=== PATIENT | female | born 1990 | race Caucasian/White ===

== ENCOUNTER 2016-07-31 21:33 | Emergency (ER) | payer MEDICAID ==
--- NOTE | 2016-07-31 22:56 | ER Document Report ---
ED GI/ - General Chief Complaint: Vaginal Bleeding Stated Complaint: VAGINAL BLEEDING Time seen by provider: 22:55 Notes: Patient is a 26-year-old female that comes emergency department for chief complaint of vaginal bleeding that started today, she states she passed a clot, she denies abdominal pain, flank pain, nausea vomiting, fever. He is at about 13 weeks gestation by last menstrual period. She has been to the health department, pending [facility] appointment this Sunday. Past medical history of seizure disorder and brain cancer (s/p surgery). TRAVEL OUTSIDE OF THE [place] IN LAST 30 DAYS: No - Related Data Allergies/Adverse Reactions: Adhesive Bandage * [Adhesive Bandage] Allergy (Verified 07/31/16 22:08) levetiracetam [From Keppra] Allergy (Verified 07/31/16 22:08) morphine [Morphine] Allergy (Verified 07/31/16 22:08) ondansetron [From Zofran (as hydrochloride)] Allergy (Verified 07/31/16 22:08) ekg leads Allergy (Uncoded 07/31/16 22:08) Past Medical History - General Information source: Patient - Social History Smoking Status: Never Smoker Frequency of alcohol use: None Drug Abuse: None Lives with: Family Family History: Reviewed & Not Pertinent Patient has suicidal ideation: No Patient has homicidal ideation: No Neurological Medical History: Reports: Hx Seizures Renal/ Medical History: Denies: Hx Peritoneal Dialysis Malignancy Medical History: Reports: Hx Brain Cancer - Glioblastoma multiform GI Medical History: Reports: Hx Gastroesophageal Reflux Disease Past Surgical History: Reports: Hx Cholecystectomy, Hx Neurologic Surgery - Right parietal craniotomy with tumor resection. SLAG DUMPER shunt left ventricle.. Denies: Hx Hysterectomy - Immunizations Immunizations up to date: No Hx Diphtheria, Pertussis, Tetanus Vaccination: No Review of Systems - Review of Systems Constitutional: No symptoms reported EENT: No symptoms reported Cardiovascular: No symptoms reported Respiratory: No symptoms reported Gastrointestinal: No symptoms reported Genitourinary: No symptoms reported Female Genitourinary: See HPI Musculoskeletal: No symptoms reported Skin: No symptoms reported Hematologic/Lymphatic: No symptoms reported Neurological/Psychological: No symptoms reported Physical Exam - Vital signs Vitals: Temp Pulse Resp BP Pulse Ox 98.4 F 97 17 124/66 96 07/31/16 22:10 07/31/16 22:10 07/31/16 22:10 07/31/16 22:10 07/31/16 22:10 Interpretation: Normal - General General appearance: Appears well, Alert In distress: None - Patient smiling, talkative, well-appearing - HEENT Head: Normocephalic, Atraumatic Eyes: Normal Conjunctiva: Normal Extraocular movements intact: Yes Eyelashes: Normal Pupils: PERRL Sinus: Normal Nasal: Normal Mouth/Lips: Normal Mucous membranes: Normal Pharynx: Normal Neck: Normal - Respiratory Respiratory status: No respiratory distress Chest status: Nontender Breath sounds: Normal Chest palpation: Normal - Cardiovascular Rhythm: Regular Heart sounds: Normal auscultation Murmur: No - Abdominal Inspection: Normal Distension: No distension Bowel sounds: Normal Tenderness: Nontender. No: Tender, McBurney's point, Calderón's sign, Guarding Organomegaly: No organomegaly - Back Back: Normal, Nontender. No: Tender - Extremities General upper extremity: Normal inspection, Nontender, Normal ROM, Normal strength General lower extremity: Normal inspection, Nontender, Normal ROM, Normal strength - Neurological Neuro grossly intact: Yes Cognition: Normal Orientation: AAOx4 [place] Coma Scale Eye Opening: Spontaneous [place] Coma Scale Verbal: Oriented [place] Coma Scale Motor: Obeys Commands [place] Coma Scale Total: 15 Speech: Normal Motor strength normal: LUE, RUE, LLE, RLE Sensory: Normal - Psychological Associated symptoms: Normal affect, Normal mood - Skin Skin Temperature: Warm Skin Moisture: Dry Skin Color: Normal Course - Re-evaluation Re-evalutation: CBC unremarkable, hCG is lower than expected at 9000, ultrasound shows abnormal appearing intrauterine . Suggestive of demise with impending miscarriage based on patient's current bleeding. Patient not currently bleeding , has no current symptoms. Patient heart he has close follow-up with [facility] planned, RhoGAM is not indicated. Patient given details and handouts of all her information, patient took this very well, remained very positive, supportive. Patient states she'll follow closely with [facility] and return for any concerning symptoms. - Vital Signs Vital signs: Temp Pulse Resp BP Pulse Ox 98.3 F 81 15 118/71 100 08/01/16 01:45 08/01/16 01:45 08/01/16 01:45 08/01/16 01:45 08/01/16 01:45 - Laboratory Result Diagrams: 07/31/16 23:15 Laboratory results interpreted by me: 07/31/16 07/31/16 07/31/16 22:43 23:15 23:15 Serum HCG, Qual POSITIVE H Beta HCG, Quant 9033.60 H Urine Blood LARGE H Ur Leukocyte Esterase TRACE H Discharge - Discharge Clinical Impression: Vaginal bleeding in patient at less than 20 weeks gestation Condition: Stable Disposition: HOME, SELF-CARE Additional Instructions: Evaluation and workup is concerning for possible miscarriage that is developing. However this still requires my evaluation, please follow-up with [facility] in 2-3 days to have a repeat evaluation of your blood test and further decision-making as we discussed. Return the emergency department immediately for any concerning symptoms including very heavy bleeding, dizziness, severe pain, fever, etc. Miscarriage Impending You have been evaluated for a possible miscarriage. At this time, it appears that the fetus has stopped growing. A miscarriage occurs when the fetus is abnormal. There is no medicine or treatment to prevent it. If bleeding is not severe, and if your pain can be controlled with medicine, you could complete the miscarriage at home. If that's not practical, or if the miscarriage doesn't progress spontaneously, we will arrange for a D&C procedure. You should rest in bed. Do not douche or have sex for at least a week, or until OK'd by the doctor. If you believe you've passed the fetus, collect it in a zip-lock plastic bag. Be sure to follow up with your doctor. Call the doctor or return for re- examination if there is an increase in bleeding or cramping, extreme weakness, fainting, fever, or passage of tissue. Referrals: CRAIG GAXIOLA MD [Primary Care Provider] - Follow up as needed
[2016-07-31 23:04] LABS: APPEARANCE,URINE CLEAR; BILIRUBIN,URINE NEGATIVE (NEGATIVE); GLUCOSE, URINE NEGATIVE (NEGATIVE); KETONES,URINE NEGATIVE (NEGATIVE); LEUKOCYTE ESTERASE,URINE TRACE (NEGATIVE); NITRITE,URINE NEGATIVE (NEGATIVE); PROTEIN,URINE NEGATIVE (NEGATIVE); URINE SPECIFIC GRAVITY 1.004; UROBILINOGEN,URINE NEGATIVE mg/dL (<2.0)
[2016-07-31 23:29] LABS: ABSOLUTE EOSINOPHILS # (AUTO) 0.2 10^3/uL (0.0-0.6); ABSOLUTE LYMPHOCYTES (AUTO) 2.3 10^3/uL (0.5-4.7); ABSOLUTE MONOCYTES (AUTO) 0.8 10^3/uL (0.1-1.4); ABSOLUTE NEUT (AUTO) 3.5 10^3/uL (1.7-8.2); BASOPHILS % (AUTO) 0.7 % (0-2); EOSINOPHILS % (AUTO) 3.1 % (0-6); HEMATOCRIT 41.9 % (36.0-47.0); HEMOGLOBIN 14.5 g/dL (12.0-15.5); HGB HCT DIFFERENCE 1.6; LYMPHOCYTES % (AUTO) 33.4 % (13-45); MEAN CORPUSCULAR HEMOGLOBIN 31.1 pg (27.0-33.4); MEAN CORPUSCULAR HGB CONC 34.6 g/dL (32.0-36.0); MEAN CORPUSCULAR VOLUME 90 fl (80-97); MONOCYTES % (AUTO) 11.1 % (3-13); RED BLOOD COUNT 4.66 10^6/uL (3.72-5.28); RED CELL DISTRIBUTION WIDTH 13.2 % (11.5-14.0); SEGMENTED NEUTROPHILS % (AUTO) 51.7 % (42-78); WHITE BLOOD COUNT 6.8 10^3/uL (4.0-10.5)
[2016-08-01 02:46] VITALS: BP 118/71
== END 2016-08-01 01:50 | disposition home or self-care (01) ==
LOC: ER 21:33
DX: O20.9 Hemorrhage in early pregnancy, unspecified (principal); Z3A.13 13 weeks gestation of pregnancy; Z85.841 Personal history of malignant neoplasm of brain; Z90.49 Acquired absence of other specified parts of digestive tract; Z98.2 Presence of cerebrospinal fluid drainage device
CPT/HCPCS: 36415; 76817; 81001; 84702; 84703; 85025; 86900; 86901; 93976; 99284

== ENCOUNTER 2016-08-02 19:34 | Emergency (ER) | payer MEDICAID ==
[2016-08-02 20:45] VITALS: BP 114/73
--- NOTE | 2016-08-02 20:57 | ER Document Report ---
ED Medical Screen (RME) - General Stated Complaint: VAGINAL BLEEDING Notes: 26 yo G1, 11 wk gestation c/o possible miscarriage. seen in ED yesterday. US showed demise at 6 wk. pt began spotting 2 days ago. pain and bleeding increased tonight. passed possible products of conception this evening. cramping continues TRAVEL OUTSIDE OF THE [place] IN LAST 30 DAYS: No - Related Data Allergies/Adverse Reactions: Adhesive Bandage * [Adhesive Bandage] Allergy (Verified 07/31/16 22:08) levetiracetam [From Keppra] Allergy (Verified 07/31/16 22:08) morphine [Morphine] Allergy (Verified 07/31/16 22:08) ondansetron [From Zofran (as hydrochloride)] Allergy (Verified 07/31/16 22:08) ekg leads Allergy (Uncoded 07/31/16 22:08) Past Medical History Neurological Medical History: Reports: Hx Seizures Renal/ Medical History: Denies: Hx Peritoneal Dialysis Malignancy Medical History: Reports: Hx Brain Cancer - Glioblastoma multiform GI Medical History: Reports: Hx Gastroesophageal Reflux Disease Past Surgical History: Reports: Hx Cholecystectomy, Hx Neurologic Surgery - Right parietal craniotomy with tumor resection. MAIL AGENT shunt left ventricle.. Denies: Hx Hysterectomy - Immunizations Immunizations up to date: No Hx Diphtheria, Pertussis, Tetanus Vaccination: No Physical Exam - Vital signs Vitals: Temp Pulse Resp BP Pulse Ox 98.7 F 92 18 114/73 100 08/02/16 20:44 08/02/16 20:44 08/02/16 20:44 08/02/16 20:44 08/02/16 20:44 Course - Vital Signs Vital signs: Temp Pulse Resp BP Pulse Ox 98.7 F 92 18 114/73 100 08/02/16 20:44 08/02/16 20:44 08/02/16 20:44 08/02/16 20:44 08/02/16 20:44
== END 2016-08-03 01:13 | disposition left against medical advice (07) ==
LOC: ER 19:34
DX: Z53.9 Procedure and treatment not carried out, unspecified reason (principal); N93.9 Abnormal uterine and vaginal bleeding, unspecified
CPT/HCPCS: 88305; 99281

== ENCOUNTER → 2016-08-02 | Outpatient (CLI) | payer MEDICAID | LOC: OD 11:16 | PROVIDERS: ATTEND Obstetrics & Gynecology | DX: O02.1 Missed abortion (principal) | CPT/HCPCS: 36415; 84702 ==

== ENCOUNTER 2018-06-20 17:50 | Emergency (ER) | payer MEDICAID ==
[2018-06-20] MEDS ORDERED: IBUPROFEN 600 MG TABLET PO ONE ×2 (17:54→18:58)
[2018-06-20 17:55] VITALS: BP 124/68
--- NOTE | 2018-06-20 18:29 | RADIOLOGY REPORT (SQ) ---
EXAM DESCRIPTION: FOOT LEFT COMPLETE COMPLETED DATE/TIME: 06/20/2018 6:14 pm REASON FOR STUDY: injury COMPARISON: None. EXAM PARAMETERS: NUMBER OF VIEWS: Three views. TECHNIQUE: AP, lateral and oblique radiographic images acquired of the left foot. LIMITATIONS: None. FINDINGS: MINERALIZATION: Normal. BONES: Minimally displaced non articular fracture in the left 3rd proximal phalanx with mild dorsal a nd valgus angulation. No joint Dislocation. No worrisome bone lesions. JOINTS: No effusion. SOFT TISSUES: No significant soft tissue swelling. No radiopaque foreign body. OTHER: No other significant finding. IMPRESSION: Minimally displaced non articular fracture in the left 3rd proximal phalanx with mild do rsal and valgus angulation. TECHNICAL DOCUMENTATION: JOB ID: [id number] 2010 [employer]- All Rights Reserved Reading location - IP/workstation name: [employer]
--- NOTE | 2018-06-20 18:50 | ER Document Report ---
ED Medical Screen (RME) - General Chief Complaint: Foot Pain Stated Complaint: TOE INJURY Time Seen by Provider: 06/20/18 18:48 Notes: 27-year-old female patient stubbed her left third toe against a couch about 4:30 PM today. It is painful and deformed. I have greeted and performed a rapid initial assessment of this patient. A comprehensive ED assessment and evaluation of the patient, analysis of test results and completion of the medical decision making process will be conducted by additional ED providers. TRAVEL OUTSIDE OF THE [place] IN LAST 30 DAYS: No - Related Data Allergies/Adverse Reactions: Adhesive Bandage * [Adhesive Bandage] Allergy (Verified 07/31/16 22:08) levetiracetam [From Keppra] Allergy (Verified 07/31/16 22:08) morphine [Morphine] Allergy (Verified 07/31/16 22:08) ondansetron [From Zofran (as hydrochloride)] Allergy (Verified 07/31/16 22:08) ekg leads Allergy (Uncoded 07/31/16 22:08) Past Medical History - Social History Frequency of alcohol use: Occasional Drug Abuse: None Neurological Medical History: Reports: Hx Seizures Renal/ Medical History: Denies: Hx Peritoneal Dialysis Malignancy Medical History: Reports: Hx Brain Cancer - Glioblastoma multiform GI Medical History: Reports: Hx Gastroesophageal Reflux Disease Past Surgical History: Reports: Hx Cholecystectomy, Hx Neurologic Surgery - Right parietal craniotomy with tumor resection. 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 Denies: Hx Hysterectomy - Immunizations Immunizations up to date: No Hx Diphtheria, Pertussis, Tetanus Vaccination: No Physical Exam - Vital signs Vitals: Temp Pulse Resp BP Pulse Ox 98.0 F 108 H 14 124/68 100 06/20/18 17:53 06/20/18 17:53 06/20/18 17:53 06/20/18 17:53 06/20/18 17:53 Course - Vital Signs Vital signs: Temp Pulse Resp BP Pulse Ox 98.0 F 108 H 14 124/68 100 06/20/18 17:53 06/20/18 17:53 06/20/18 17:53 06/20/18 17:53 06/20/18 17:53
[2018-06-20] MEDS ORDERED: ACETAMINOPHEN 325 MG TABLET PO ONE (18:58)
--- NOTE | 2018-06-20 20:07 | ER Document Report ---
ED General - General Chief Complaint: Foot Pain Stated Complaint: TOE INJURY Time Seen by Provider: 06/20/18 18:48 Notes: Patient is a 27-year-old female who presents after stubbing her left middle toe on a piece of furniture just prior to arrival. She states that since that time she has had a severe, throbbing, constant pain to the toe. She has not contacted her primary care doctor regarding today's concerns. Denies a history of similar injury in the past. Denies any additional injuries today. She has not trying to improve the pain. Walking on it worsens the pain. TRAVEL OUTSIDE OF THE [place] IN LAST 30 DAYS: No - Related Data Allergies/Adverse Reactions: Adhesive Bandage * [Adhesive Bandage] Allergy (Verified 07/31/16 22:08) levetiracetam [From Keppra] Allergy (Verified 07/31/16 22:08) morphine [Morphine] Allergy (Verified 07/31/16 22:08) ondansetron [From Zofran (as hydrochloride)] Allergy (Verified 07/31/16 22:08) ekg leads Allergy (Uncoded 07/31/16 22:08) Past Medical History - General Information source: Patient - Social History Smoking Status: Never Smoker Frequency of alcohol use: Occasional Drug Abuse: None Lives with: Spouse/Significant other Family History: Reviewed & Not Pertinent Patient has suicidal ideation: No Patient has homicidal ideation: No Neurological Medical History: Reports: Hx Seizures Renal/ Medical History: Denies: Hx Peritoneal Dialysis Malignancy Medical History: Reports: Hx Brain Cancer - Glioblastoma multiform GI Medical History: Reports: Hx Gastroesophageal Reflux Disease Past Surgical History: Reports: Hx Cholecystectomy, Hx Neurologic Surgery - Right parietal craniotomy with tumor resection. [employer]TER OPERATOR shunt left ventricle.. Denies: Hx Hysterectomy - Immunizations Immunizations up to date: No Hx Diphtheria, Pertussis, Tetanus Vaccination: No Review of Systems - Review of Systems Notes: Constitutional: Negative for fever. Eyes: Negative for visual changes. ENT: Negative for facial injury Cardiovascular: Negative for chest injury. Respiratory: Negative for shortness of breath. Gastrointestinal: Negative for abdominal injury. Genitourinary: Negative for genital injury Musculoskeletal: Positive for left third toe injury Skin: Negative for laceration/abrasions. Neurological: Negative for head injury. Physical Exam - Vital signs Vitals: Temp Pulse Resp BP Pulse Ox 98.0 F 108 H 14 124/68 100 06/20/18 17:53 06/20/18 17:53 06/20/18 17:53 06/20/18 17:53 06/20/18 17:53 Interpretation: Tachycardic Notes: PHYSICAL EXAMINATION: GENERAL: Well-appearing, well-nourished and in no acute distress. HEAD: Atraumatic, normocephalic. EYES: sclera anicteric, conjunctiva are normal. ENT: Moist mucous membranes. NECK: Normal range of motion LUNGS: Normal work of breathing HEART: 2+ radial pulses bilaterally EXTREMITIES: Mild bruising and deformity to the left third toe. Dorsi and plantar flexion are present in the left third toe. Extremity examination otherwise unremarkable. No pitting or edema. No cyanosis. NEUROLOGICAL: No focal neurological deficits. Moves all extremities spontaneously and on command. PSYCH: Normal mood, normal affect. SKIN: Warm, Dry, normal turgor, no rashes or lesions noted. Course - Re-evaluation Re-evalutation: 06/20/18 20:05 Patient presents with a left third toe injury after accidentally stubbing her third toe against a couch just prior to arrival. X-ray does show a third phalanx fracture with moderate displacement. The remainder the patient's physical examination is unremarkable with exception of an abrasion over the dorsal surface of the toe as well as ecchymosis to the third toe. Strong 2+ DP pulse bilaterally. No additional injuries by history or on exam. Patient has been instructed to follow-up with orthopedic surgery in the next 3-5 days. She has had viktoriya tape applied to the toe and the second toe. A walking boot has been provided. Crutches have been provided. At this time will discharge with return precautions and follow-up recommendations. Verbal discharge instructions given a the bedside and opportunity for questions given. Medication warnings reviewed. Patient is in agreement with this plan and has verbalized understanding of return precautions and the need for primary care follow-up in the next 24-72 hours. - Vital Signs Vital signs: Temp Pulse Resp BP Pulse Ox 98.0 F 108 H 14 124/68 100 06/20/18 17:53 06/20/18 17:53 06/20/18 17:53 06/20/18 17:53 06/20/18 17:53 - Diagnostic Test Radiology reviewed: Image reviewed, Reports reviewed Radiology results interpreted by me: 06/20/18 20:06 Left foot x-ray: Left third digit proximal phalanx fracture Discharge - Discharge Clinical Impression: Contusion of third toe, left Qualifiers: Encounter type: initial encounter Qualified Code(s): S90.122A - Contusion of left lesser toe(s) without damage to nail, initial encounter Toe fracture, left Qualifiers: Encounter type: initial encounter Toe: lesser toe Fracture type: closed Phalanx: proximal Fracture alignment: displaced Qualified Code(s): S92.512A - Displaced fracture of proximal phalanx of left lesser toe(s), initial encounter for closed fracture Condition: Good Disposition: HOME, SELF-CARE Additional Instructions: Your x-ray does show a fracture of your left third toe that is moderately displaced. You will need to follow-up with orthopedic surgery regarding his injury but should not require surgical intervention. For your pain: Take ibuprofen 600 mg and acetaminophen 1000 mg every 6 hours together as needed for pain. Continue to apply ice to the area is much your able. Use crutches as needed for pain. Keep the toes viktoriya taped together. Please return immediately if you develop weakness, numbness, spreading redness from the area, or any other symptoms that are concerning to you. Referrals: BEV GOMES MD [ACTIVE STAFF] - Follow up in 3-5 days
== END 2018-06-20 21:15 | disposition home or self-care (01) ==
LOC: ER 17:50
DX: S92.512A Displaced fracture of proximal phalanx of left lesser toe(s), initial encounter for closed fracture (principal); S90.122A Contusion of left lesser toe(s) without damage to nail, initial encounter; M79.672 Pain in left foot; W22.03XA Walked into furniture, initial encounter; Y92.009 Unspecified place in unspecified non-institutional (private) residence as the place of occurrence of the external cause; Z88.6 Allergy status to analgesic agent
CPT/HCPCS: 99283; 73630; J3490 ×2